=== PATIENT | male | born 1935 | race Caucasian/White ===

== ENCOUNTER → 2019-11-08 | Outpatient (CLI) | payer MEDICARE, OTHER ==
[~2019-11-08] MED LIST: AMIT25TA PO; AMLO10TA8 PO; ATOR40TA78 PO; DEXL60CA2 PO; DRON400T PO; FINA5TAB4 PO; GABA300C10 PO; HYDROCHLOROTH12.5 MG PO; METO25TA91 PO; MULT-257 PO; RIVA20TA PO; TAMS-11 PO
== END | disposition home or self-care (01) ==
LOC: CVU 09:42
PROVIDERS: ATTEND Internal Medicine Cardiovascular Disease
DX: I08.8 Other rheumatic multiple valve diseases (principal); I65.23 Occlusion and stenosis of bilateral carotid arteries
CPT/HCPCS: 93306; 93880

== ENCOUNTER 2020-10-30 09:40 | Outpatient (CLI) | payer MEDICARE, OTHER ==
[~2020-10-30 09:40] MED LIST changes: +AMLO-211 PO; -AMLO10TA8 PO; -DRON400T PO; +DRON400T6 PO
== END 2020-10-30 23:59 | disposition home or self-care (01) ==
LOC: CVU 09:40
PROVIDERS: ATTEND Internal Medicine Cardiovascular Disease
DX: I08.8 Other rheumatic multiple valve diseases (principal); I65.23 Occlusion and stenosis of bilateral carotid arteries; I77.810 Thoracic aortic ectasia; I10 Essential (primary) hypertension; E78.5 Hyperlipidemia, unspecified
CPT/HCPCS: 93306; 93880

== ENCOUNTER 2020-10-30 09:42 | Outpatient (CLI) | payer MEDICARE, OTHER ==
[2020-10-30] MEDS ORDERED: OMNIPAQUE 350 MG/ML, 100ML BOTTLE ONE (13:59)
== END 2020-10-30 23:59 | disposition home or self-care (01) ==
LOC: RAD 09:42
PROVIDERS: ATTEND Internal Medicine Cardiovascular Disease
DX: I65.23 Occlusion and stenosis of bilateral carotid arteries (principal); I65.02 Occlusion and stenosis of left vertebral artery; I77.810 Thoracic aortic ectasia
CPT/HCPCS: 70498; 93306; 93880; Q9967

== ENCOUNTER 2021-01-10 11:56 | Outpatient (CLI) | payer MEDICARE, OTHER ==
[~2021-01-10 11:56] MED LIST changes: +REGADENOSON 0.4 MG/5 ML SYRINGE ONE
== END 2021-01-10 23:59 | disposition home or self-care (01) ==
LOC: CFH 11:56
PROVIDERS: ATTEND Internal Medicine Cardiovascular Disease
DX: Z01.810 Encounter for preprocedural cardiovascular examination (principal); I48.0 Paroxysmal atrial fibrillation; I10 Essential (primary) hypertension
CPT/HCPCS: 78452; 93017; A9502; J2785